=== PATIENT | female | born 1965 | race Caucasian/White ===

== ENCOUNTER 2017-08-19 05:13 | Inpatient (IN) | payer OTHER ==
[2017-08-19] VITALS (12 sets, daily range): BP systolic 126–154; BP diastolic 59–83
[~2017-08-19] VITALS: Ht 157.5 cm; Wt 53.1 kg
[2017-08-19] MEDS ORDERED: LR 1000ml 1,000 ML IVLG SCH (05:48)
--- NOTE | 2017-08-19 05:49 | 48 Hour Post Anesthesia Eval ---
Post Anesthesia Evaluation Date of Evaluation: Aug 19, 2017 Frank Spivey MD Aug 19, 2017 05:49
--- NOTE | 2017-08-19 05:49 | 48 Hour Post Anesthesia Eval ---
Post Anesthesia Evaluation Date of Evaluation: Aug 19, 2017 Frank Spivey MD Aug 19, 2017 05:49
--- NOTE | 2017-08-19 05:49 | Anethesia Preoperative Eval ---
Anesthesia Pre-op PMH/ROS General Date of Evaluation: Aug 19, 2017 Time of Evaluation: 06:56 Anesthesiologist: Patric ASA Score: ASA 2 Mallampati Score Class I : Soft palate, uvula, fauces, pillars visible Class II: Soft palate, uvula, fauces visible Class III: Soft palate, base of uvula visible Class IV: Only hard plate visible Mallampati Classification: Class II Surgeon: Humera Diagnosis: Neck Pain Surgical Procedure: ACDF C5-6, ADR C6-7 Anesthesia History: none Social History: smoking Family History: no anesthesia problems Allergies: Coded Allergies: No Known Allergies (Unverified , 08/18/17) Medications: see eMAR Past Medical History Cardiovascular: Reports: HTN Neurologic/Psychiatric: Reports: depression/anxiety PSxH Narrative: [employer] Anesthesia Pre-op Phys. Exam Physician Exam Vital Signs Date Time Temp Pulse Resp B/P (MAP) Pulse Ox O2 Delivery O2 Flow Rate FiO2 08/19/17 06:01 97.5 70 20 148/83 99 Room Air Constitutional: NAD Neurologic: CN 2-12 intact Cardiovascular: RRR Respiratory: CTA Gastrointestinal: S/NT/ND Airway Exam Mallampati Score: Class II MO: full ROM: limited Teeth: intact Anesthesia Pre-op A/P Risk Assessment & Plan Assessment: ASA 2 Plan: GA, BIS, Glidescope Status Change Before Surgery: No Pre-Antibiotics Dru Grams Ancef IV Given Within 1 Hr of Incision: Yes Time Given: 07:16 Frank Spivey MD Aug 19, 2017 05:49
--- NOTE | 2017-08-19 05:49 | 48 Hour Post Anesthesia Eval ---
Post Anesthesia Evaluation Date of Evaluation: Aug 19, 2017 Frank Spivey MD Aug 19, 2017 05:49
--- NOTE | 2017-08-19 05:49 | Immediate Post-Op Evaluation ---
Immediate Post-Op Evalulation Immediate Post-Op Evalulation Procedure: ACDF C5-6, ADR C6-7 Date of Evaluation: Aug 19, 2017 Time of Evaluation: 09:47 IV Fluids: 1000 LR Blood Products: 0 Estimated Blood Loss: 15 Urinary Output: 700 Blood Pressure Systolic: 137 Blood Pressure Diastolic: 59 Pulse Rate: 69 Respiratory Rate: 16 O2 Sat by Pulse Oximetry: 100 Temperature (Fahrenheit): 97.5 Pain Score (1-10): 3 Nausea: No Vomiting: No Complications 0 Patient Status: awake, reacts, patent, extubated, none Hydration Status: adequate Dru Grams Ancef IV Given Within 1 Hr of Incision: Yes Time Given: 07:16 Frank Spivey MD Aug 19, 2017 05:49
[2017-08-19] MEDS ORDERED: LORazepam Inj 2mg/ml 1ml IV PRN (06:00)
[2017-08-19] MEDS ORDERED: fentaNYL 100 mcg/2 mL IV PRN (06:00)
[2017-08-19] MEDS ORDERED: DiphenhydrAMINE 50mg/ml Inj IVP PRN (06:00)
[2017-08-19] MEDS ORDERED: oxyCODONE HCL/Acetaminophen 5/325mg ORAL PRN (06:00)
[2017-08-19] MEDS ORDERED: Midazolam 2mg/2ml Inj IVP PRN (06:00)
[2017-08-19] MEDS ORDERED: Atropine Inj 1mg/10ml Syr IV PRN (06:00)
[2017-08-19] MEDS ORDERED: Metoclopramide 10mg/2ml Inj IVP PRN ×2 (06:00→12:00)
[2017-08-19] MEDS ORDERED: Norco 5mg/325mg tab ORAL PRN ×2 (06:00→12:00)
[2017-08-19] MEDS ORDERED: Acetaminophen (Non formulary) 100 ML IV ONE (06:00)
[2017-08-19] MEDS ORDERED: Ketorolac 30mg Inj IV PRN (06:00)
[2017-08-19] MEDS ORDERED: Ketorolac 60mg Inj IV PRN (06:00)
[2017-08-19] MEDS ORDERED: Norco 7.5mg/325mg tab ORAL PRN ×3 (06:00→12:00)
[2017-08-19] MEDS ORDERED: Thrombin 5000 units TOPIC ONE (06:29)
[2017-08-19] MEDS ORDERED: Bacitracin 50000 Units Vial ONE (06:30)
[2017-08-19] MEDS ORDERED: Vancomycin 1gm inj IVPB ONE (06:30)
[2017-08-19] MEDS ORDERED: Ropivacaine 5mg/ml Vial 30ml INJ ONE (06:30)
[2017-08-19] MEDS ORDERED: Bupivacaine w/Epi 0.75% 30ml Vial INJ ONE (06:30)
[2017-08-19] MEDS ORDERED: AMBIEN10 M1 ORAL (06:32)
[2017-08-19] MEDS ORDERED: LORAZEPAM0.5 MG ORAL (06:32)
[2017-08-19] MEDS ORDERED: TRAMADOL HCL50 MG ORAL (06:32)
[2017-08-19] MEDS ORDERED: CYMBALTA30 MG ORAL (06:32)
[2017-08-19] MEDS ORDERED: MYRBETRIQ50 MG PO (06:32)
[2017-08-19] MEDS ORDERED: LYRICA75 M1 ORAL (06:32)
[2017-08-19] MEDS ORDERED: Sterile Water Irrig 1000ml IRRIG ONE (07:00)
[2017-08-19] MEDS ORDERED: Glycopyrrolate 0.2mg/ml 1ml Vial ONE (07:00)
[2017-08-19] MEDS ORDERED: Sodium Chloride 10ml vial INJ ONE (07:00)
[2017-08-19] MEDS ORDERED: Neostigmine 1mg/ml 10ml Inj ONE (07:00)
[2017-08-19] MEDS ORDERED: fentaNYL 100 mcg/2 mL IV ONE (07:00)
[2017-08-19] MEDS ORDERED: ceFAZolin 2gm/50ml Premix 50 ML IVPB ONE (07:00)
[2017-08-19] MEDS ORDERED: LR 1000ml ONE (07:00)
[2017-08-19] MEDS ORDERED: Dexamethasone 4mg/ml vial ONE (07:00)
[2017-08-19] MEDS ORDERED: Lidocaine 1% MPF 10mg/ml 5ml ONE (07:00)
[2017-08-19] MEDS ORDERED: NS Irrig 1000ml ONE (07:00)
[2017-08-19] MEDS ORDERED: Zemuron 50mg/5ml Inj IV ONE (07:00)
[2017-08-19] MEDS ORDERED: Lidocaine 1% Plain 30 ml INJ ONE (07:00)
--- NOTE | 2017-08-19 07:07 | Brief Operative Note ---
Immediate Post Operative Note Operative Note Chief Complaint: neck pain and radic Pre-op Diagnosis: Herniation 56,67 Procedure: C56 Artificial disc replacement, C67 anterior cervical discectomy and fusion Post-op Diagnosis: same as pre-op Findings: consistent w/pre-op dx studies Surgeon: Humera Advertising Sales Executive: Tristin Anesthesiologist: Patric Anesthesia: general Complications: none Condition: stable Implant(s) used?: Yes - Prodisc C5, nuvasive interlock 6 DANISHA PATEL Aug 19, 2017 07:07
--- NOTE | 2017-08-19 07:07 | Pre-Procedure Note/Attestation ---
Pre-Procedure Note/Attestation Complete Prior to Procedure Planned Procedure: not applicable Procedure Narrative: C56 Artificial disc replacement, C67 anterior cervical discectomy and fusion Indications for Procedure Pre-Operative Diagnosis: Herniation 56,67 Attestation I attest that I discussed the nature of the procedure; its benefits; risks and complications; and alternatives (and the risks and benefits of such alternatives ), prior to the procedure, with the patient (or the patient's legal appeals representative). I attest that, if there was a reasonable possibility of needing a blood transfusion, the patient (or the patient's legal appeals representative) was given the [facility] Services standardized written summary, pursuant to the [place] Blood Safety Act ([place] Health and Safety Code # 1645, as amended). I attest that I re-evaluated the patient just prior to the surgery and that there has been no change in the patient's H&P, except as documented below: DANISHA PATEL Aug 19, 2017 07:07
--- NOTE | 2017-08-19 07:07 | Pre-Procedure Note/Attestation ---
Pre-Procedure Note/Attestation Complete Prior to Procedure Planned Procedure: not applicable Procedure Narrative: C56 Artificial disc replacement, C67 anterior cervical discectomy and fusion Indications for Procedure Pre-Operative Diagnosis: Herniation 56,67 Attestation I attest that I discussed the nature of the procedure; its benefits; risks and complications; and alternatives (and the risks and benefits of such alternatives ), prior to the procedure, with the patient (or the patient's legal equal opportunity representative). I attest that, if there was a reasonable possibility of needing a blood transfusion, the patient (or the patient's legal equal opportunity representative) was given the [facility] of Health Services standardized written summary, pursuant to the Kapil [place] Blood Safety Act ([place] Health and Safety Code # 1645, as amended). I attest that I re-evaluated the patient just prior to the surgery and that there has been no change in the patient's H&P, except as documented below: DANISHA PATEL Aug 19, 2017 07:07
--- NOTE | 2017-08-19 07:07 | Pre-Procedure Note/Attestation ---
Pre-Procedure Note/Attestation Complete Prior to Procedure Planned Procedure: not applicable Procedure Narrative: C56 Artificial disc replacement, C67 anterior cervical discectomy and fusion Indications for Procedure Pre-Operative Diagnosis: Herniation 56,67 Attestation I attest that I discussed the nature of the procedure; its benefits; risks and complications; and alternatives (and the risks and benefits of such alternatives ), prior to the procedure, with the patient (or the patient's legal representative personal service). I attest that, if there was a reasonable possibility of needing a blood transfusion, the patient (or the patient's legal representative personal service) was given the [facility] of Health Services standardized written summary, pursuant to the [place] Blood Safety Act ([place] Health and Safety Code # 1645, as amended). I attest that I re-evaluated the patient just prior to the surgery and that there has been no change in the patient's H&P, except as documented below: DANISHA PATEL Aug 19, 2017 07:07
[2017-08-19] MEDS ORDERED: Propofol 1,000mg/ 100ml btl IV ONE (07:30)
[2017-08-19] MEDS: Hydromorphone 0.5mg/0.5ml inj IVP PRN ×2 (09:59→11:08)
[2017-08-19] MEDS ORDERED: Naloxone 0.4mg/ml Inj IVP PRN (12:00)
[2017-08-19] MEDS ORDERED: Milk of Magnesia 30ml Ud ORAL PRN (12:00)
[2017-08-19] MEDS ORDERED: HYDROmorphone 1mg/ml Carpuject SUBQ PRN (12:00)
[2017-08-19] MEDS: NS w/KCl 20mEq 1,000 ML IV SCH ×2 (12:44→23:14)
[2017-08-19] MEDS: Dexamethasone 4mg/ml vial IVP SCH ×4 (12:44→23:55)
[2017-08-19] MEDS ORDERED: Chloraseptic Spray 20mL Bottle ORAL PRN (13:00)
--- NOTE | 2017-08-19 13:26 | Diagnostic Imaging Report ---
Indication: Pain in the left upper extremity greater than right upper extremity, intraoperative Technique: Intraoperative images Comparison: None Findings: Localizer needle overlies the C5-6 disc on initial image. Subsequent images demonstrate placement of a disc prosthesis at C5-6 and anterior fusion hardware at C6-7. Impression: Intraoperative imaging, as described
[2017-08-19] MEDS: ceFAZolin sod 1 GM in D5W 55 ML IV SCH ×2 (15:27→23:15)
--- NOTE | 2017-08-19 16:48 | Consultation ---
History of Present Illness General Date patient seen: Aug 19, 2017 Time patient seen: 12:30 Chief Complaint: neck pain Referring physician: Horace Grubbs MD Reason for Consultation: medical management postop Present Illness HPI 52 y/o female with hx of cervical spine stenosis, s/p cervical spine fusion, no periop or postop complications. Postop pain well controlled. No chest pain or dyspnea. Allergies: Coded Allergies: No Known Allergies (Unverified , 08/18/17) Medication History Scheduled Duloxetine Hcl* (Cymbalta*), 30 MG ORAL DAILY, (Reported) Lorazepam* (Lorazepam*), 0.5 MG ORAL , (Reported) Mirabegron (Myrbetriq), 50 MG PO DA, (Reported) Pregabalin* (Lyrica*), 75 MG ORAL BID, (Reported) Scheduled PRN Tramadol Hcl* (Ultram*), 50 MG ORAL NEED PRN for For Pain, (Reported) Zolpidem Tartrate* (Ambien*), 6.25 MG ORAL HS PRN for Insomnia, (Reported) Patient History History Provided By: Patient Healthcare decision maker MARIA E-DAUGHTER Resuscitation status Full Code Advanced Directive on File Past Medical/Surgical History Past Medical/Surgical History: (1) HNP (herniated nucleus pulposus), cervical Family History Family History: (1) Family history in first degree relatives is unremarkable Social History Social History: (1) No significant social history Review of Systems ROS Narrative CONSTITUTIONAL: No weight loss, fever, chills, weakness or fatigue. HEENT: Eyes: No visual loss, blurred vision, double vision or yellow sclerae. Ears, Nose, Throat: No hearing loss, sneezing, congestion, runny nose or sore throat. +neck pain SKIN: No rash or itching. CARDIOVASCULAR: No chest pain, chest pressure or chest discomfort. No palpitations or edema. RESPIRATORY: No shortness of breath, cough or sputum. GASTROINTESTINAL: No anorexia, nausea, vomiting or diarrhea. No abdominal pain or blood. NEUROLOGICAL: No headache, dizziness, syncope, paralysis, ataxia, numbness or tingling in the extremities. No change in bowel or bladder control. MUSCULOSKELETAL: No muscle, back pain, joint pain or stiffness. HEMATOLOGIC: No anemia, bleeding or bruising. LYMPHATICS: No enlarged nodes. No history of splenectomy. PSYCHIATRIC: No history of depression or anxiety. ENDOCRINOLOGIC: No reports of sweating, cold or heat intolerance. No polyuria or polydipsia. ALLERGIES: No history of asthma, hives, eczema or rhinitis. Physical Exam Physical Exam Narrative General: alert, cooperative, no distress, appears stated age Head: normocephalic, without obvious abnormality, atraumatic Eyes: conjunctivae/corneas clear. PERRL, EOM's intact Throat: lips, mucosa, and tongue normal. MMM Neck: incision c/d/i, no surrounding erythema Lungs: clear to auscultation bilaterally Heart: regular rate and rhythm, S1, S2 normal, no murmur, click, rub or gallop Abdomen: soft, non-tender, non-distended, bowel sounds normal; no masses or organomegaly Extremities: extremities normal, atraumatic, no cyanosis or edema Pulses: 2+ and symmetric Skin: skin color, texture, turgor normal; no rashes or lesions Neurologic: grossly normal, no focal deficits Last 24 Hour Vital Signs Date Time Temp Pulse Resp B/P (MAP) Pulse Ox O2 Delivery O2 Flow Rate FiO2 08/19/17 16:26 97.8 74 20 148/78 97 Nasal Cannula 3.0 08/19/17 15:55 97.8 08/19/17 12:10 97.9 79 20 141/76 97 Nasal Cannula 3.0 08/19/17 10:40 98.3 08/19/17 10:30 98.3 69 17 150/62 100 Nasal Cannula 3.0 08/19/17 10:20 69 15 154/68 100 Nasal Cannula 3.0 08/19/17 10:10 69 11 150/66 100 Nasal Cannula 3.0 08/19/17 09:59 68 11 126/64 100 Nasal Cannula 3.0 08/19/17 09:55 71 19 141/66 100 Nasal Cannula 3.0 08/19/17 09:45 69 13 135/70 100 Simple Mask 6.0 08/19/17 09:40 67 15 140/69 97 Simple Mask 6.0 08/19/17 09:36 97.5 71 12 137/59 97 Simple Mask 6.0 08/19/17 09:35 69 16 100 08/19/17 06:01 97.5 70 20 148/83 99 Room Air Intake and Output 08/19/17 08/20/17 19:00 07:00 Intake Total 1240 ml Output Total 715 ml Balance 525 ml Intake Oral 240 ml IV Total 1000 ml Output Urine Total 700 ml Estimated Blood Loss 15 ml # Voids 1 Laboratory Tests Test 08/19/17 05:30 Urine HCG, Qualitative Negative Height (Feet): 5 Height (Inches): 2.00 Weight (Pounds): 117 Medications Current Medications Medications (Trade) Dose Ordered Sig/Harsha Route PRN Reason Start Time Stop Time Status Last Admin Dose Admin Acetaminophen (Tylenol) 650 mg Q4H PRN ORAL headache or temp>101 08/19/17 12:00 09/18/17 11:59 Acetaminophen/ Hydrocodone Bitart (Randall 5/325) 1 tab Q3H PRN ORAL pain score 1-3 08/19/17 12:00 08/26/17 11:59 Acetaminophen/ Hydrocodone Bitart (Randall 7.5/325) 1 ea Q3H PRN ORAL pain score 4-6 08/19/17 12:00 08/26/17 11:59 Acetaminophen/ Hydrocodone Bitart (Randall 7.5/325) 2 ea Q3H PRN ORAL pain scale 7-10 08/19/17 12:00 08/26/17 11:59 Carisoprodol (Soma) 350 mg TIDPRN PRN ORAL SPASM 08/19/17 12:00 09/18/17 11:59 Cefazolin Sodium 1 gm/Dextrose 55 ml @ 110 mls/hr Q8H IV 08/19/17 15:00 08/20/17 07:29 08/19/17 15:27 Cetylpyridinium Chloride (Cepacol) 1 lozenge Q2H PRN MARTHA SORE THROAT 08/19/17 13:00 09/18/17 12:59 Dexamethasone Sodium Phosphate (Decadron 4mg/ml vial) 4 mg Q6HR IVP 08/19/17 12:00 08/20/17 06:01 08/19/17 12:44 Docusate Sodium (Colace) 100 mg TWICE A DAY ORAL 08/19/17 18:00 09/18/17 17:59 Duloxetine HCl (Cymbalta) 30 mg DAILY ORAL 08/20/17 09:00 09/19/17 08:59 Hydromorphone HCl (Dilaudid) 1 mg Q4H PRN SUBQ Mild Pain (Pain Scale 1-3) 08/19/17 12:00 08/26/17 11:59 08/19/17 15:27 Hydromorphone HCl (Dilaudid) 2 mg Q3H PRN SUBQ Severe Pain (Pain Scale 7-10) 08/19/17 12:00 08/26/17 11:59 Hydromorphone HCl (Dilaudid) 2 mg Q4H PRN SUBQ Moderate Pain (Pain Scale 4-6) 08/19/17 12:00 08/26/17 11:59 Lorazepam (Ativan) 0.5 mg QHS PRN ORAL For Anxiety 08/19/17 21:00 08/26/17 20:59 Magnesium Hydroxide (Mom) 30 ml QIDPRN PRN ORAL Constipation 08/19/17 12:00 09/18/17 11:59 Metoclopramide HCl (Reglan) 10 mg Q6H PRN IVP Nausea & Vomiting 08/19/17 12:00 09/18/17 11:59 Naloxone HCl (Narcan) 0.1 mg PRN PRN IVP RR<12/min, pt unarousable 08/19/17 12:00 09/18/17 11:59 Ondansetron HCl (Zofran) 4 mg Q6H PRN IVP Nausea & Vomiting 08/19/17 12:00 09/18/17 11:59 Phenol/Menthol (Chloraseptic) 1 spray Q3H PRN ORAL SORE THROAT 08/19/17 13:00 09/18/17 12:59 Pregabalin (Lyrica) 75 mg BID ORAL 08/19/17 18:00 09/18/17 17:59 Sodium Chloride 1,000 ml @ 100 mls/hr Q10H IV 08/19/17 13:30 09/18/17 13:29 08/19/17 12:44 Temazepam (Restoril) 15 mg HSPRN PRN ORAL Insomnia 08/19/17 21:00 08/26/17 20:59 Zolpidem Tartrate (Ambien) 5 mg QHS PRN ORAL Insomnia 08/19/17 21:00 08/26/17 20:59 Assessment/Plan Problem List: (1) HNP (herniated nucleus pulposus), cervical Assessment & Plan: s/p cervical fusion Postop care Pain control Supp care DVT/GI ppx Incentive spirometry ICD Codes: M50.20 - Other cervical disc displacement, unspecified cervical region SNOMED: [id number] KATJA RAMOS Aug 19, 2017 16:48
[2017-08-19] MEDS: Docusate 100mg cap ORAL SCH (17:23)
[2017-08-19] MEDS: Lyrica 75mg cap ORAL SCH (17:23)
[2017-08-19] MEDS ORDERED: LORazepam 0.5mg tab ORAL PRN (21:00)
[2017-08-19] MEDS ORDERED: Zolpidem 5mg tab ORAL PRN (21:00)
[2017-08-20 00:21] VITALS: BP 159/81
--- NOTE | 2017-08-20 01:45 | Operative Note - Dictated ---
DATE OF OPERATION: 08/19/2017 SURGEON: Horace Grubbs MD, orthopedic spine surgeon. HUMAN RESOURCES TECHNICIAN: GEO Chamorro. PREOPERATIVE DIAGNOSES: 1. Intractable neck pain. 2. Radiculopathy. 3. Herniation, C5-6 and C6-7. 4. Neural foraminal stenosis, C5-6 and C6-7. POSTOPERATIVE DIAGNOSES: 1. Intractable neck pain. 2. Radiculopathy. 3. Herniation, C5-6 and C6-7. 4. Neural foraminal stenosis, C5-6 and C6-7. PROCEDURE PERFORMED: 1. Anterior cervical discectomy and artificial disc replacement of C5-6 using a Synthes ProDisc-C, size 5. 2. C6-7 anterior cervical discectomy and fusion with NuVasive Interlock C, size 6 with 3 screws of 13 mm length and Osteocel allograft. 3. Use of intraoperative microscope. 4. Motor evoked potential monitoring. 5. Somatosensory evoked potential monitoring. 6. Supervision and interpretation of fluoroscopy. COMPLICATIONS: None. ANESTHESIA: General. ESTIMATED BLOOD LOSS: Less than 100 mL. INDICATIONS FOR SURGERY: This patient is a 52-year-old female who has a history of diagnoses as listed above. As of result of this, the patient sustained intractable neck pain; radiculopathy; herniation, C5-6 and C6-7; and neural foraminal stenosis, C5-6 and C6-7. We tried a course of conservative management but despite this course there was still a significant component of persistent, recalcitrant neck pain and arm pain. The MRI demonstrated significant neural foraminal compromise secondary to disc herniations at C5-6 and C6-7. We had a long discussion with Afshan regarding the risks and benefits of surgery. Our discussion included but was not limited to nonoperative management, chiropractic management, another epidural steroid injection as well definitive management in the form of surgery. We recommended anterior cervical discectomy and artificial disc replacement of C5-6 using and anterior cervical discectomy and fusion of C67 and Osteocel allograft as final definitive management. We reviewed the risks and benefits of surgery with the patient. Our discussion included a comprehensive review of the clinical issues and the nature of the clinical decision. We reviewed the alternatives, including doing nothing. The patient elected to proceed accordingly with anterior cervical discectomy and artificial disc replacement of C5-6 using and anterior cervical discectomy and fusion of C67 . We had a long discussion regarding the risks, alternatives and benefits of surgery. Our description of the risks included a discussion in person as well as a signed consent which detailed all pertinent risks from the procedure itself. Briefly, our discussion included but was not limited to infection, bleeding, pseudarthrosis, spinal cord injury, neurovascular injury, dural tear, CSF leak, neuropathy, paralysis, permanent weakness/drop foot/drop arm, paresthesias, blindness, palsy and weakness. The patient understood there may be a need for a revision surgery or additional procedures. Approach-related complications including dysphonia, dysphagia, blindness, permanent vocal cord and neural injury, hematoma, swallowing and breathing difficulty. Medical complications were reviewed including liver, kidney, shock, cardiopulmonary failure, anesthesia complications including , swelling, damage to the musculature, larynx/voice injury or loss, esophagus/throat, trachea, blood vessels and muscles/muscular sprain and lungs/pneumothorax during this surgical procedure; injury to deeper structures may be temporary or permanent. After this review of risks, the patient understood these and elected to proceed. A written and verbal consent was given. We discussed the pros and cons of all the alternatives. We discussed the uncertainties associated with the decision. Afterwards I assessed the patient's understanding and explored their preferences. All questions were answered and no guarantees were given. Medical clearance was obtained prior to surgery. INTRAOPERATIVE FINDINGS: A broad based disc herniation which was found posterior to a tear/rent in the posterior longitudinal ligament at C5-6 and also at C6-7 causing a considerable amount of neural foraminal stenosis with significant encroachment on the neural foramina and spinal cord. DESCRIPTION OF PROCEDURE: Under the benefit of general endotracheal anesthesia and with the assistance of the entire operative team, the patient was moved from the [facility] onto the operative table in the supine position. The head was secured and carefully positioned appropriately. Bilateral arms were secured with GelPads and foam and all bony prominences were padded. For the bilateral lower extremities SCD and BALWINDER hose were placed for DVT prophylaxis. A surgical timeout was called, which corroborated our planned procedure of anterior cervical discectomy and artificial disc replacement of C5-6 using and anterior cervical discectomy and fusion of C67 . Preoperative antibiotics were administered within 30 minutes of the incision for antibiotic prophylaxis. Using lateral fluoroscopic radiography, the operative levels were delineated. Next the wound was prepped and draped with Chlorhexidine and sterile drapes. An incision was based on lateral fluoroscopy and we centered our incision at the C5-6 and C6-7 interspace and next using a standard Spencer-Gal[place] anterior based approach, the incision was taken down through the skin and subcutaneous tissues until the vertebral bodies and their corresponding disc spaces were visualized. A needle was placed into the interspace to confirm placement of the operative interspace and we performed the remainder of procedure under microscopic visualization. Next, using a bipolar and Bovie cautery to ensure meticulous hemostasis, the longus colli was mobilized bilaterally and retractors were placed deep to the longus colli bilaterally to address retraction. Next we turned our attention to the radical anterior discectomy. This was initially performed at C5-6 first by using a 15 blade scalpel followed by narrow pituitaries and a Microsect 5-B curette was used to denude the endplate of all cartilaginous tissue. Next using a [employer] AM8, drillbit the vertebral endplates were removed in a [id number] and layer by layer fashion, and ultimately the posterior uncinate joints bilaterally and posterior osteophytic lips and margins causing central and lateral impingement were carefully denuded until visualization of the posterior longitudinal ligament was possible. An endplate preparation was performed in the exact same fashion using an intervertebral staying machine operator, sequential distraction was obtained throughout the disc space. We saw a tear/rent in the PLL and this was carefully mobilized and dissected using a Microsect 1-B curet until we visualized a broad-based disc herniation with compression of the spinal cord as well as neural foramina. This neural foraminal compression was carefully resected using a Kerrison-1 and Kerrison-2 rongeurs until complete decompression of the spinal cord was visualized and complete decompression of the neural foramina and nerve root therein as well as the axilla and lateral margin of the nerve root was visualized and subsequently completely decompressed. The family was notified at one hour intervals throughout the procedure to provide for consistent updates. We next turned our attention towards trialing our implant within the disc space. We initially tried size 5 and the ProDisc Cervical spacer fit well in regards to depth and width. This implant was opened and prepared. Next under direct visualization, I confirmed excellent fit in respect to the anterior and posterior vertebral bodies, the uncinate joints and in regards to toggle. Once satisfied with this placement on serial AP and lateral fluoroscopy, I turned my attention towards cutting our poornima. These were cut in the bones using a reciprocating drill and afterwards, all free fragments of bone were irrigated. Next FloSeal was placed into the interspace and the implant was inserted using fluoroscopic guidance. Next the Synthes ProDisc-C size 5 ADR was then carefully advanced and secured into the intervertebral space under direct visualization and with supervision of AP and lateral fluoroscopic views. Next, we turned our attention to the radical anterior discectomy at the C6-7 level first by using a 15 blade scalpel followed by narrow pituitaries, and a micro-sect 5-B curette was used to denude the endplate of all cartilaginous tissue. Next using a [employer] AM8 drillbit the vertebral endplates were removed in a [id number] and layer by layer fashion, and ultimately the posterior uncinate joints bilaterally and posterior osteophytic lips and margins causing central and lateral impingement were carefully denuded until visualization of the posterior longitudinal ligament was possible. An endplate preparation was performed in the exact same fashion using an intervertebral staying machine operator, sequential distraction was obtained throughout the disc space. We saw a tear/rent in the PLL and this was carefully mobilized and dissected using a micro-set 1-B curet until we visualized a broad-based disc herniation with compression of the spinal cord as well neural foramina. This neural foraminal compression was carefully resected using a Kerrison-1 and Kerrison-2 rongeurs until complete decompression of the spinal cord was visualized and complete decompression of the neural foramina and nerve root therein as well as the axilla and lateral margin of the nerve root was visualized and subsequently completely decompressed. We next turned our attention towards trialing our implant within the disc space. We initially tried size 5 and afterwards size 6 trial from the [email or web address] system at each level, which appeared to be appropriate under AP and lateral fluoroscopy as well as in terms of its height, depth, width and lack of toggle. The PEEK polyetheretherketone interbody cages were then both packed with allograft bone from Osteocel and local autograft bone matrix. Next these were then carefully advanced and secured into their intervertebral spaces under direct visualization and with supervision of AP and lateral fluoroscopic views. We next turned our attention towards plating. Plating was performed with [email or web address] Interlock-C plating system. A total of 3 screws, size 13 mm in length were inserted and confirmed under AP and lateral fluoroscopy and confirmed to be in excellent position After a finger sweep we confirmed removal of all sponges. The retractor was removed and we next turned our attention to meticulous hemostasis with FloSeal and bipolar cautery. After the sponge and needle count was again found to be correct with our second count, we next turned our attention to closure. The wound was again copiously irrigated with antibiotic impregnated saline. Closure consisted of 4-0 clear nylon for the platysma, and 6-0 clear nylon for the superficial skin. Final skin closure and dressings consisted of Dermabond. Prior to final closure, a final radiograph was obtained which demonstrated the hardware is intact with excellent position throughout. The patient tolerated the procedure well. The patient was carefully extubated after the conclusion of surgery. We discussed the findings of the surgery with the family upon completion of the case. At this point the patient was transferred to the spine floor for further observation. Horace Grubbs M.D. DR: BRAYAN JOB#: [id number] CC: KATTY
--- NOTE | 2017-08-20 01:45 | Operative Note - Dictated ---
DATE OF OPERATION: 08/19/2017 SURGEON: Horace Grubbs MD, orthopedic spine surgeon. FLANGE MACHINE OPERATOR: GEO Chamorro. PREOPERATIVE DIAGNOSES: 1. Intractable neck pain. 2. Radiculopathy. 3. Herniation, C5-6 and C6-7. 4. Neural foraminal stenosis, C5-6 and C6-7. POSTOPERATIVE DIAGNOSES: 1. Intractable neck pain. 2. Radiculopathy. 3. Herniation, C5-6 and C6-7. 4. Neural foraminal stenosis, C5-6 and C6-7. PROCEDURE PERFORMED: 1. Anterior cervical discectomy and artificial disc replacement of C5-6 using a Synthes ProDisc-C, size 5. 2. C6-7 anterior cervical discectomy and fusion with NuVasive Interlock C, size 6 with 3 screws of 13 mm length and Osteocel allograft. 3. Use of intraoperative microscope. 4. Motor evoked potential monitoring. 5. Somatosensory evoked potential monitoring. 6. Supervision and interpretation of fluoroscopy. COMPLICATIONS: None. ANESTHESIA: General. ESTIMATED BLOOD LOSS: Less than 100 mL. INDICATIONS FOR SURGERY: This patient is a 52-year-old female who has a history of diagnoses as listed above. As of result of this, the patient sustained intractable neck pain; radiculopathy; herniation, C5-6 and C6-7; and neural foraminal stenosis, C5-6 and C6-7. We tried a course of conservative management but despite this course there was still a significant component of persistent, recalcitrant neck pain and arm pain. The MRI demonstrated significant neural foraminal compromise secondary to disc herniations at C5-6 and C6-7. We had a long discussion with Afshan regarding the risks and benefits of surgery. Our discussion included but was not limited to nonoperative management, chiropractic management, another epidural steroid injection as well definitive management in the form of surgery. We recommended anterior cervical discectomy and artificial disc replacement of C5-6 using and anterior cervical discectomy and fusion of C67 and Osteocel allograft as final definitive management. We reviewed the risks and benefits of surgery with the patient. Our discussion included a comprehensive review of the clinical issues and the nature of the clinical decision. We reviewed the alternatives, including doing nothing. The patient elected to proceed accordingly with anterior cervical discectomy and artificial disc replacement of C5-6 using and anterior cervical discectomy and fusion of C67 . We had a long discussion regarding the risks, alternatives and benefits of surgery. Our description of the risks included a discussion in person as well as a signed consent which detailed all pertinent risks from the procedure itself. Briefly, our discussion included but was not limited to infection, bleeding, pseudarthrosis, spinal cord injury, neurovascular injury, dural tear, CSF leak, neuropathy, paralysis, permanent weakness/drop foot/drop arm, paresthesias, blindness, palsy and weakness. The patient understood there may be a need for a revision surgery or additional procedures. Approach-related complications including dysphonia, dysphagia, blindness, permanent vocal cord and neural injury, hematoma, swallowing and breathing difficulty. Medical complications were reviewed including liver, kidney, shock, cardiopulmonary failure, anesthesia complications including , swelling, damage to the musculature, larynx/voice injury or loss, esophagus/throat, trachea, blood vessels and muscles/muscular sprain and lungs/pneumothorax during this surgical procedure; injury to deeper structures may be temporary or permanent. After this review of risks, the patient understood these and elected to proceed. A written and verbal consent was given. We discussed the pros and cons of all the alternatives. We discussed the uncertainties associated with the decision. Afterwards I assessed the patient's understanding and explored their preferences. All questions were answered and no guarantees were given. Medical clearance was obtained prior to surgery. INTRAOPERATIVE FINDINGS: A broad based disc herniation which was found posterior to a tear/rent in the posterior longitudinal ligament at C5-6 and also at C6-7 causing a considerable amount of neural foraminal stenosis with significant encroachment on the neural foramina and spinal cord. DESCRIPTION OF PROCEDURE: Under the benefit of general endotracheal anesthesia and with the assistance of the entire operative team, the patient was moved from the [facility] onto the operative table in the supine position. The head was secured and carefully positioned appropriately. Bilateral arms were secured with GelPads and foam and all bony prominences were padded. For the bilateral lower extremities SCD and BALWINDER hose were placed for DVT prophylaxis. A surgical timeout was called, which corroborated our planned procedure of anterior cervical discectomy and artificial disc replacement of C5-6 using and anterior cervical discectomy and fusion of C67 . Preoperative antibiotics were administered within 30 minutes of the incision for antibiotic prophylaxis. Using lateral fluoroscopic radiography, the operative levels were delineated. Next the wound was prepped and draped with Chlorhexidine and sterile drapes. An incision was based on lateral fluoroscopy and we centered our incision at the C5-6 and C6-7 interspace and next using a standard Spencer-Galicia anterior based approach, the incision was taken down through the skin and subcutaneous tissues until the vertebral bodies and their corresponding disc spaces were visualized. A needle was placed into the interspace to confirm placement of the operative interspace and we performed the remainder of procedure under microscopic visualization. Next, using a bipolar and Bovie cautery to ensure meticulous hemostasis, the longus colli was mobilized bilaterally and retractors were placed deep to the longus colli bilaterally to address retraction. Next we turned our attention to the radical anterior discectomy. This was initially performed at C5-6 first by using a 15 blade scalpel followed by narrow pituitaries and a Microsect 5-B curette was used to denude the endplate of all cartilaginous tissue. Next using a [employer] AM8, drillbit the vertebral endplates were removed in a [id number] and layer by layer fashion, and ultimately the posterior uncinate joints bilaterally and posterior osteophytic lips and margins causing central and lateral impingement were carefully denuded until visualization of the posterior longitudinal ligament was possible. An endplate preparation was performed in the exact same fashion using an intervertebral laundry agent, sequential distraction was obtained throughout the disc space. We saw a tear/rent in the PLL and this was carefully mobilized and dissected using a Microsect 1-B curet until we visualized a broad-based disc herniation with compression of the spinal cord as well as neural foramina. This neural foraminal compression was carefully resected using a Kerrison-1 and Kerrison-2 rongeurs until complete decompression of the spinal cord was visualized and complete decompression of the neural foramina and nerve root therein as well as the axilla and lateral margin of the nerve root was visualized and subsequently completely decompressed. The family was notified at one hour intervals throughout the procedure to provide for consistent updates. We next turned our attention towards trialing our implant within the disc space. We initially tried size 5 and the ProDisc Cervical spacer fit well in regards to depth and width. This implant was opened and prepared. Next under direct visualization, I confirmed excellent fit in respect to the anterior and posterior vertebral bodies, the uncinate joints and in regards to toggle. Once satisfied with this placement on serial AP and lateral fluoroscopy, I turned my attention towards cutting our poornima. These were cut in the bones using a reciprocating drill and afterwards, all free fragments of bone were irrigated. Next FloSeal was placed into the interspace and the implant was inserted using fluoroscopic guidance. Next the Synthes ProDisc-C size 5 ADR was then carefully advanced and secured into the intervertebral space under direct visualization and with supervision of AP and lateral fluoroscopic views. Next, we turned our attention to the radical anterior discectomy at the C6-7 level first by using a 15 blade scalpel followed by narrow pituitaries, and a micro-sect 5-B curette was used to denude the endplate of all cartilaginous tissue. Next using a [employer] AM8 drillbit the vertebral endplates were removed in a [id number] and layer by layer fashion, and ultimately the posterior uncinate joints bilaterally and posterior osteophytic lips and margins causing central and lateral impingement were carefully denuded until visualization of the posterior longitudinal ligament was possible. An endplate preparation was performed in the exact same fashion using an intervertebral laundry agent, sequential distraction was obtained throughout the disc space. We saw a tear/rent in the PLL and this was carefully mobilized and dissected using a micro-set 1-B curet until we visualized a broad-based disc herniation with compression of the spinal cord as well neural foramina. This neural foraminal compression was carefully resected using a Kerrison-1 and Kerrison-2 rongeurs until complete decompression of the spinal cord was visualized and complete decompression of the neural foramina and nerve root therein as well as the axilla and lateral margin of the nerve root was visualized and subsequently completely decompressed. We next turned our attention towards trialing our implant within the disc space. We initially tried size 5 and afterwards size 6 trial from the [employer] system at each level, which appeared to be appropriate under AP and lateral fluoroscopy as well as in terms of its height, depth, width and lack of toggle. The PEEK polyetheretherketone interbody cages were then both packed with allograft bone from Osteocel and local autograft bone matrix. Next these were then carefully advanced and secured into their intervertebral spaces under direct visualization and with supervision of AP and lateral fluoroscopic views. We next turned our attention towards plating. Plating was performed with [employer] Interlock-C plating system. A total of 3 screws, size 13 mm in length were inserted and confirmed under AP and lateral fluoroscopy and confirmed to be in excellent position After a finger sweep we confirmed removal of all sponges. The retractor was removed and we next turned our attention to meticulous hemostasis with FloSeal and bipolar cautery. After the sponge and needle count was again found to be correct with our second count, we next turned our attention to closure. The wound was again copiously irrigated with antibiotic impregnated saline. Closure consisted of 4-0 clear nylon for the platysma, and 6-0 clear nylon for the superficial skin. Final skin closure and dressings consisted of Dermabond. Prior to final closure, a final radiograph was obtained which demonstrated the hardware is intact with excellent position throughout. The patient tolerated the procedure well. The patient was carefully extubated after the conclusion of surgery. We discussed the findings of the surgery with the family upon completion of the case. At this point the patient was transferred to the spine floor for further observation. Horace Grubbs M.D. DR: BRAYAN JOB#: [id number] CC: KATTY
[2017-08-20 04:28] VITALS: BP 132/78
[2017-08-20 08:00] VITALS: BP 127/70
[2017-08-20] MEDS: Docusate 100mg cap ORAL SCH (08:58)
[2017-08-20] MEDS: Lyrica 75mg cap ORAL SCH (08:59)
[2017-08-20] MEDS ORDERED: DULoxetine 30mg cap ORAL SCH (09:00)
--- NOTE | 2017-08-20 09:02 | Discharge Summary ---
Discharge Summary Hospital Course Date of Admission Aug 19, 2017 at 05:13 Date of Discharge Aug 20, 2017 Admitting Diagnosis Cervical stenosis Reason for Hospitalization: cervical spine fusion surgery HPI Afshan Maldonado is a 52 year old female who was admitted on Aug 19, 2017 at 05:13 for Cervical Herniated Disc Consultations Spine surgery Procedures See operative report Hospital Course 52 y/o female admitted for cervical spien stenosis, s/p cervical spine fusion surgery, no periop or postop complications. After adequate pain control and supp care she was dced home and will f/u with Dr. Grubbs as outpt in 1-2 weeks. Discharge Medications Continued Medications: Duloxetine Hcl* (Cymbalta*) 30 Mg Capsule.dr 30 MG ORAL DAILY, CAP Lorazepam* (Lorazepam*) 0.5 Mg Tablet 0.5 MG ORAL , TAB Mirabegron (Myrbetriq) 50 Mg Tab.er.24h 50 MG PO DA, TAB Pregabalin* (Lyrica*) 75 Mg Capsule 75 MG ORAL BID, CAP Zolpidem Tartrate* (Ambien*) 10 Mg Tablet 6.25 MG ORAL HS PRN for Insomnia, TAB Discharge Condition Upon Discharge: stable Discharge Disposition Patient was discharged to home Discharge Diagnoses: (1) HNP (herniated nucleus pulposus), cervical KATJA RAMOS Aug 20, 2017 09:02
[2017-08-20] MEDS: NS w/KCl 20mEq 1,000 ML IV SCH (09:30)
[2017-08-20] MEDS ORDERED: Chloraseptic Spray 20mL Bottle ORAL PRN (10:45)
[2017-08-20] MEDS: ceFAZolin sod 1 GM in D5W 55 ML IV SCH (12:37)
== END 2017-08-20 14:20 | disposition home or self-care (01) | DRG 473 ==
LOC: SDSOVERFLO 05:13 → 3E 10:49
PROC: 0RT30ZZ Resection of Cervical Vertebral Disc, Open Approach (ICD-10-PCS; principal; 2017-08-19 07:00)
PROC: 0RG10J0 Fusion of Cervical Vertebral Joint with Synthetic Substitute, Anterior Approach, Anterior Column, Open Approach (ICD-10-PCS; principal; 2017-08-19 07:00)
PROC: 0RG10A0 Fusion of Cervical Vertebral Joint with Interbody Fusion Device, Anterior Approach, Anterior Column, Open Approach (ICD-10-PCS; principal; 2017-08-19 07:00)
PROC: 4A11X4G Monitoring of Peripheral Nervous Electrical Activity, Intraoperative, External Approach (ICD-10-PCS; principal; 2017-08-19 07:00)
DX: M50.122 Cervical disc disorder at C5-C6 level with radiculopathy (principal); M48.02 Spinal stenosis, cervical region; Z87.891 Personal history of nicotine dependence
CPT/HCPCS: 36415; 72040; 76001; 81025; 86850; 86900; 86901; 87081; 94003; 94150; J2405; J2710